=== PATIENT | female | born 1965 | race Two or more races ===

== ENCOUNTER 2023-11-08 08:55 | Emergency (ER) | payer OTHER ==
[~2023-11-08] VITALS: Ht 162.6 cm; Wt 54.4 kg
[2023-11-08 09:15] VITALS: BP 137/93; TEMP 98; O2SAT 100
== END 2023-11-08 11:52 | disposition home or self-care (01) ==
LOC: ER 09:04
DX: S83.91XA Sprain of unspecified site of right knee, initial encounter (principal); I10 Essential (primary) hypertension; W01.0XXA Fall on same level from slipping, tripping and stumbling without subsequent striking against object, initial encounter; Y93.89 Activity, other specified; Y92.89 Other specified places as the place of occurrence of the external cause; Y99.8 Other external cause status
CPT/HCPCS: 73564-TC

== ENCOUNTER 2025-01-25 09:07 | Emergency (ER) | payer OTHER ==
[~2025-01-25] VITALS: Ht 162.6 cm; Wt 58.1 kg
[2025-01-25 09:56] LABS: BASOPHILS % (AUTO) 0.6 % (0.0-2.0); EOSINOPHILS # (AUTO) 0.1 K/uL (0.0-0.7); EOSINOPHILS % (AUTO) 1.8 % (0.0-6.0); HEMATOCRIT 42 % (33-45); HEMOGLOBIN 13.8 g/dL (11.5-14.8); LYMPHOCYTES # (AUTO) 2.2 K/uL (0.8-4.8); LYMPHOCYTES % (AUTO) 30.6 % (20.0-44.0); MEAN CORPUSCULAR HEMOGLOBIN 30 PG (26.0-33.0); MEAN CORPUSCULAR HGB CONC 33 g/dl (31.0-36.0); MEAN CORPUSCULAR VOLUME 89 fL (82-100); MONOCYTES # (AUTO) 0.5 K/uL (0.1-1.30); MONOCYTES % (AUTO) 7.2 % (2.0-12.0); NEUTROPHILS # (AUTO) 4.3 K/uL (1.8-8.9); NEUTROPHILS % (AUTO) 59.8 % (43.0-81.0); PLATELET COUNT (AUTO) 255 K/uL (150-450); RED CELL DISTRIBUTION WIDTH 12.7 % (11.5-15.0); WHITE BLOOD COUNT (AUTO) 7.2 K/uL (4.3-11.0)
[2025-01-25 10:04] LABS: CALCIUM, SERUM 8.9 mg/dL (8.5-10.1); CREATININE 0.8 mg/dL (0.6-1.3)
[2025-01-25 10:48] VITALS: BP 128/67; TEMP 98.9; O2SAT 98
== END 2025-01-25 10:48 | disposition home or self-care (01) ==
LOC: ER 09:07
DX: R00.2 Palpitations (principal); I10 Essential (primary) hypertension; I34.1 Nonrheumatic mitral (valve) prolapse
CPT/HCPCS: 36415; 80048-TC; 83735-TC; 85025-TC

== ENCOUNTER 2025-09-07 13:59 | Emergency (ER) | payer OTHER ==
[~2025-09-07] VITALS: Ht 162.6 cm; Wt 54.4 kg
[2025-09-07 14:25] VITALS: TEMP 98.8
[2025-09-07] MEDS ORDERED: MECLIZINE HCL 25 MG TABLET ONE (15:12)
[2025-09-07] MEDS ORDERED: ACETAMINOPHEN ES 500 MG TABLET ONE (15:12)
[2025-09-07] MEDS: ACETAMINOPHEN ES 500 MG TABLET PO ONE (15:25)
[2025-09-07] MEDS: MECLIZINE HCL 12.5 MG TABLET PO ONE (15:25)
[2025-09-07] MEDS ORDERED: MECL-159 PO (16:18)
[2025-09-07 16:24] VITALS: BP 133/86; O2SAT 98
== END 2025-09-07 16:22 | disposition home or self-care (01) ==
LOC: ER 14:07
DX: R51.9 Headache, unspecified (principal); R42 Dizziness and giddiness; I11.9 Hypertensive heart disease without heart failure
CPT/HCPCS: 99284; 70450; J8597